=== PATIENT | female | born 1985 | race African-American/Black ===

== ENCOUNTER 2016-08-30 13:30 | Emergency (ER) | payer MEDICAID ==
[~2016-08-30] VITALS: Ht 162.6 cm; Wt 56.0 kg
[2016-08-30] MEDS ORDERED: HYDR10SY11 PO (13:34)
[2016-08-30 13:41] VITALS: BP 129/80
[2016-08-30] MEDS ORDERED: LORAZEPAM 0.5MG TABLET PO ONE (15:00)
[2016-08-30 15:52] LABS: HEMATOCRIT 38.7 % (36.0-48.0); HEMOGLOBIN 13.1 g/dL (12.0-16.0); MEAN CORPUSCULAR HGB CONC 33.8 g/dL (31.0-37.0); PLATELET 359 x1000/uL (130-400); RED BLOOD CELL COUNT 4.51 mill/uL (4.2-5.4); RED CELL DISTRIBUTION WIDTH 14.1 % (11.6-14.6); WHITE BLOOD COUNT 8.7 x1000/uL (4.5-11.0)
[2016-08-30 16:01] LABS: ANION GAP 10; CALCIUM 9.2 mg/dL (8.5-10.1); CARBON DIOXIDE 26 mEq/L (21-32); CHLORIDE 105 mEq/L (98-107); INDEX HEMOLYSI 1 (1-3); INDEX ICTERIC 1 (1-4); INDEX LIPEMIC 1 (1-3); UREA NITROGEN BLOOD 12 mg/dL (7-21); eGFR > 60 mL/min (>60)
== END 2016-08-30 16:12 | disposition home or self-care (01) ==
LOC: ER 14:39
DX: F41.9 Anxiety disorder, unspecified (principal)
CPT/HCPCS: 36415; 80048; 85027; 99284

== ENCOUNTER 2022-09-09 11:34 | Emergency (ER) | payer MEDICAID, OTHER ==
[~2022-09-09] VITALS: Ht 177.8 cm; Wt 68.0 kg
[~2022-09-09 11:34] MED LIST: HYDR10SY11 PO
[2022-09-09 11:37] VITALS: BP 132/85
[2022-09-09] MEDS ORDERED: LORAZEPAM 0.5MG TABLET PO ONE (12:00)
== END 2022-09-09 13:44 | disposition home or self-care (01) ==
LOC: ER 11:34
DX: F41.9 Anxiety disorder, unspecified (principal)
CPT/HCPCS: 99283